=== PATIENT | female | born 2000 | race Two or more races ===

== ENCOUNTER → 2024-12-26 | Outpatient (CLI) | payer MEDICAID, SELFPAY ==
--- NOTE | 2024-12-26 10:35 | XR_ITS ---
EXAMINATION: PA lateral chest 2 views TECHNIQUE: Upright PA lateral chest 2 views Date and time: December 26, 2024, 1048 hours INDICATIONS: Right flank pain 1 week. FINDINGS: Normal heart size. Lungs are clear. The osseous structures are intact. IMPRESSION: No active disease
== END | disposition home or self-care (01) ==
PROVIDERS: PCP Internal Medicine; Referring Provider Internal Medicine; Visit Provider Internal Medicine
DX: R07.81 Pleurodynia (principal)
CPT/HCPCS: 71046

== ENCOUNTER → 2025-01-24 | Outpatient (CLI) | payer MEDICAID, SELFPAY ==
--- NOTE | 2025-01-24 14:30 | XR_ITS ---
Examination: Retroperitoneal ultrasound, complete Technique: Multiple high resolution grayscale images of the retroperitoneum obtained, including kidneys and bladder. Exam date and time: January 25, 2025, 1446 hours INDICATIONS: Right flank pain beginning 3 weeks ago FINDINGS: Right kidney 10.4 cm renal cortex 1.9 cm Left kidney 11.7 cm cortex 2.2 cm No renal calculi or hydronephrosis Contracted urinary bladder IMPRESSION: No renal calculi or hydronephrosis
== END | disposition home or self-care (01) ==
PROVIDERS: PCP Internal Medicine; Referring Provider Internal Medicine; Visit Provider Internal Medicine
DX: R10.A1 Flank pain, right side (principal)
CPT/HCPCS: 76770